=== PATIENT | male | born 1935 | race Caucasian/White ===

== ENCOUNTER 2018-01-24 13:10 | Emergency (ER) | payer MEDICARE, OTHER ==
[~2018-01-24] VITALS: Ht 167.6 cm; Wt 61.2 kg
[2018-01-24 13:21] VITALS: BP 126/80
--- NOTE | 2018-01-24 13:27 | Emergency Room Report ---
History of Present Illness General Chief Complaint: Abnormal Labs Source: Patient, EMS Present Illness HPI Patient is a 82-year-old male sent in by nursing facility after increased white blood count and other abnormal labs. Patient was noted to be demented and have a markedly limited available history. 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 Erasmo Deluna was contacted regarding clarification patient wishes. The patient was noted to have the previously expressed wishes to have comfort measures only. The patient was not to be hospitalized per POLST. Allergies: Coded Allergies: No Known Allergies (Unverified , 01/24/18) Patient History Past Medical History: see triage record Reviewed Nursing Documentation: PMH: Agreed; PSxH: Agreed Nursing Documentation-PMH Hx Cardiac Problems: Yes - CHF,HYPERLIPEDIMIA,PARKINSON,DEMENTIA Hx Hypertension: Yes History Of Psychiatric Problem: Yes - ANXIETY Review of Systems All Other Systems: limited Physical Exam Vital Signs Date Time Temp Pulse Resp B/P (MAP) Pulse Ox O2 Delivery O2 Flow Rate FiO2 01/24/18 13:05 97.4 83 16 126/80 93 Room Air 97.3 General Appearance: alert, Chronically Ill ENT: dry mucus membranes Neck: limited range of motion Respiratory: chest non-tender, lungs clear Gastrointestinal: normal inspection, normal bowel sounds, non tender Musculoskeletal: digits/nails normal Neurologic: alert, responsive, other - oriented to name Psychiatric: depressed affect Skin: normal color Medical Decision Making ER Course The patient was brought in by EMS for abnormal laboratory testing. Patient was noted to have evidence of elevated white blood count on previous testing. The patient was started on oral antibiotics empirically. The patient be sent back to the facility for further evaluation and treatment with oral antibiotics. Last Vital Signs Date Time Temp Pulse Resp B/P (MAP) Pulse Ox O2 Delivery O2 Flow Rate FiO2 01/24/18 13:21 97.3 80 16 126/80 93 Room Air 97.3 Status: improved Disposition: HOME, SELF-CARE Condition: Stable Daren Valerio MD Jan 24, 2018 13:27
[2018-01-24] MEDS ORDERED: Cephalexin 500mg cap ONE (13:43)
[2018-01-24] MEDS ORDERED: CEPHALEXIN500 MG ORAL (13:43)
[2018-01-24] MEDS ORDERED: CIPROFLOXACIN500 M2 ORAL (13:43)
[2018-01-24] MEDS ORDERED: Cephalexin 500mg cap ORAL ONE (13:45)
[2018-01-24] MEDS ORDERED: Ciprofloxacin 500mg tab ORAL ONE (13:45)
[2018-01-24 14:40] VITALS: BP 151/91
--- NOTE | 2018-01-26 12:43 | Cardiology Report ---
APPROVED REPORT EKG Measurement Heart [id number] Sinus rhythm Abnormal ECG Artifact may affect interpretation
== END 2018-01-24 14:42 | disposition home or self-care (01) ==
LOC: EDBD 13:10 → EMR 13:47
DX: D72.829 Elevated white blood cell count, unspecified (principal); E78.5 Hyperlipidemia, unspecified; G20 Parkinson's disease; F03.90 Unspecified dementia, unspecified severity, without behavioral disturbance, psychotic disturbance, mood disturbance, and anxiety; I11.0 Hypertensive heart disease with heart failure; F41.9 Anxiety disorder, unspecified
CPT/HCPCS: 93005; 99283